=== PATIENT | female | born 1995 | race African-American/Black ===

== ENCOUNTER 2018-10-03 11:16 | Emergency (ER) | payer OTHER ==
[~2018-10-03] VITALS: Ht 167.6 cm; Wt 59.0 kg
[~2018-10-03 11:16] MED LIST: BACTRIM-DS1 EA ORAL
[2018-10-03] MEDS ORDERED: TYLENOL EXTRA500 MG ORAL (11:24)
--- NOTE | 2018-10-03 11:53 | Emergency Room Report ---
History of Present Illness General Chief Complaint: Complications Source: Patient Present Illness HPI Patient presents with headache. She states this is been going on for 4 days. It's frontal throbbing. She's not taking any medication for it. She's not been able to eat because it. She denies any vomiting or diarrhea. Having difficulty sleeping. This is not the worst headache of her life. The patient is 36 weeks . She states that she started having abdominal pain yesterday. It's intermittent. It's possibly every 5 minutes. There's been no change in bowel habits, dysuria or vomiting at this time. She denies fevers or chills. There's no swelling in her ankles or calfs. Denies any discharge or vaginal bleeding. Also there is no been no gush of water. She states she has not eaten well the past few days. She states she is O+. Allergies: Coded Allergies: IODINE (Verified Allergy, Unknown, 10/03/18) Patient History Past Medical History: see triage record Social History Narrative cares for her 3 kids Now: Yes : 4 Para: 3 Reviewed Nursing Documentation: PMH: Agreed; PSxH: Agreed Nursing Documentation-PMH Past Medical History: No Stated History Review of Systems All Other Systems: negative except mentioned in HPI Physical Exam Vital Signs Date Time Temp Pulse Resp B/P (MAP) Pulse Ox O2 Delivery O2 Flow Rate FiO2 10/03/18 11:20 98.4 107 22 96/65 (75) 98 Room Air Sp02 EP Interpretation: reviewed, normal General Appearance: well appearing, no apparent distress, GCS 15, non-toxic Head: normocephalic, atraumatic Eyes: bilateral eye normal inspection, bilateral eye PERRL ENT: hearing grossly normal, normal voice Neck: full range of motion, supple Respiratory: no respiratory distress, speaking full sentences Gastrointestinal: other - gravid Genitourinary: other - cervix long and closed - 2 station, no blood Musculoskeletal: no calf tenderness Neurologic: alert, oriented x3, normal gait, other - no hyperreflexia, grossly normal Psychiatric: mood/affect normal Skin: no rash Medical Decision Making Diagnostic Impression: Primary Impression: Abdominal pain Qualified Codes: R10.30 - Lower abdominal pain, unspecified Additional Impressions: 36 weeks gestation of Headache Qualified Codes: R51 - Headache ER Course Patient is 36 weeks presents with headache and intermittent abdominal pain. Differential includes premature labor, false labor, active labor, pre- eclampsia amongst others. Based on her exam she's not in active labor at at the moment and no evidence of pre-eclampsi. heart tones are good. Patient needs to have monitoring. She'll be treated with Tylenol here The patient was discussed with Dr. Laird at [facility] and excepted for observation there. Improved with Tylenol and eating food. Prior to transfer, states episodic abdominal pain now every 5 minutes. Declines repeat exam. Patient states LOZOYA slightly better and feels better after eating. Patient not in active labor. Stable for transfer to [facility]. Last Vital Signs Date Time Temp Pulse Resp B/P (MAP) Pulse Ox O2 Delivery O2 Flow Rate FiO2 10/03/18 13:11 99 16 104/67 99 Room Air 10/03/18 12:33 98.5 Status: improved Disposition: XFER SHT-TRM HOSP Condition: Improved Toby Boogie MD Oct 03, 2018 11:53
[2018-10-03 13:11] VITALS: BP 104/67
== END 2018-10-03 13:20 | disposition short-term general hospital (02) ==
LOC: EMR 12:00
DX: O26.893 Other specified pregnancy related conditions, third trimester (principal); Z3A.36 36 weeks gestation of pregnancy; R10.30 Lower abdominal pain, unspecified; R51 Headache
CPT/HCPCS: 99282